=== PATIENT | female | born 1990 | race Caucasian/White ===

== ENCOUNTER → 2019-12-17 | Outpatient (CLI) | payer BC | LOC: COL.RAD 10:29 | DX: Z34.90 Encounter for supervision of normal pregnancy, unspecified, unspecified trimester (principal); Z3A.01 Less than 8 weeks gestation of pregnancy ==

== ENCOUNTER → 2020-08-16 | Outpatient (CLI) | payer BC ==
[~2020-08-16] MED LIST: MOTRIN CHI100 MG/5 M PO
== END ==
LOC: ZCOL.LAB 08:00
DX: Z20.828 Contact with and (suspected) exposure to other viral communicable diseases (principal)

== ENCOUNTER 2020-08-20 07:06 | Inpatient (IN) | payer BC ==
[2020-08-20] VITALS (52 sets, daily range): BP systolic 123–174; BP diastolic 56–102; PULSE 55–109; TEMP 97.6–987.6
[~2020-08-20] VITALS: Ht 167.6 cm; Wt 95.9 kg
--- NOTE | 2020-08-20 07:10 | NUR ---
Pt arrives on unit ambulatory with spouse for IOL. Changed into clean gown. EFM and toco applied. VSS. Denies LOF, vaginal bleeding, regular ctx and reports GFM. IV started in RH. Labs drawn. LR infusing. Admission assessment completed. Consents signed. Pt updated on POC. Bed locked in low position. Call light within reach. No questions or concerns at this time.
[2020-08-20 08:29] LABS: BASO % 0.3 % (0.0-2.0); EOS # 0.1 (0.0-0.7); EOS % 1.1 % (0-4.0); GRAN # 8.3 (1.4-6.5); GRAN % 73.6 % (42.2-75.2); HEMATOCRIT 37.5 % (37.0-47.0); HEMOGLOBIN 12.6 g/dl (12.5-16.0); LYMPH % 17.6 % (20.0-51.0); MEAN CELL VOLUME 82 fl (80.0-100.0); MEAN CORPUSCULAR HEMOGLOBIN 28 pg (27.0-31.0); MEAN CORPUSCULAR HGB CONC 34 g/dl (33.0-37.0); MONO # 0.7 (0.1-0.6); MONO % 6.2 % (1.7-9.3); PLATELET COUNT 146 K/mm3 (130-400); RED BLOOD COUNT 4.55 M/mm3 (4.10-5.30); REDCELL DISTRIBUTION WIDTH-CV 16.9 % (11.5-14.5)
--- NOTE | 2020-08-20 11:08 | NUR ---
Roles at bedside. Reviews FHR strip and BP. Pt repostioned LL. LR bolus infusing. Discusses pain management options with pt. Pt requests stadol. Orders given. See EMAR. COCHRAN per this RN 2-/-2 prior to administration of stadol.
--- NOTE | 2020-08-20 11:33 | NUR ---
RN at bedside. Pt repositioned RL. Difficulty tracing ctx. RN at bedside adjusting TOCO.
--- NOTE | 2020-08-20 14:36 | NUR ---
RN at bedside for negrete placement. FHR noted in the 90s for approximately 3 minutes during negrete placement and SVE. Pt repositioned RL with PB. FHR returns to 125 baseline.
--- NOTE | 2020-08-20 19:12 | NUR ---
191- Pushing started. 1916- FHR decel 70-80bpm while pushing. Recovered to baseline [address] Brandt on the unit. FHR tracing reviewed. 1920- Dr. Brandt at the bedside. 1922- FHR decel 60-80bpm while pushing. 1924- Pt set up for delivery. 1931- of viable male . placed on mom's abdomen. Cords clamped and cut. Care of the given to nursery RN at the bedside. 1935- of placenta. Fundus firm and lochia WNL per Dr. Brandt. Pitocin started at 333ml/hr per order and protocol.
--- NOTE | 2020-08-20 22:30 | NUR ---
Pt up to the bathroom with stand-pivot to wheelchair and 2 RNs for assistance. Pt unable to void at this time. Myrna-care done. Transfered pt to room 214. Oriented to room, bed and call light with in reach. Plan of care reviewed.
[2020-08-21 01:30] VITALS: BP 145/77; PULSE 69; TEMP 97.7
[2020-08-21 05:36] VITALS: BP 134/80; PULSE 75; TEMP 97.9
--- NOTE | 2020-08-21 07:32 | NUR ---
PT CALLED OUT FOR HELP TO BATHROOM. RN PROVIDED ASSITANCE FOR PATIENT TO STAND UP. PT AMBULATED TO BATHROOM INDEPENDENTLY, RN AT SIDE. PT PROVIDED OWN SELINA CARE. PT AMBULATED BACK TO BED INDEPENDENTLY.
[2020-08-21 08:50] VITALS: BP 136/81; PULSE 82; TEMP 98.2
--- NOTE | 2020-08-21 09:13 | NUR ---
Initial visit; Patient thanked [employer] for offering congratulations and God's blessings for the of her son. [employer] thanked patient for choosing [facility].
[2020-08-21 17:20] VITALS: BP 133/82; PULSE 74; TEMP 98.2
[2020-08-22 06:57] VITALS: BP 145/85; PULSE 72; TEMP 98
[2020-08-22] MEDS ORDERED: MOTRIN CHI100 MG/5 M PO (08:59)
[2020-08-22 16:18] VITALS: BP 140/88; PULSE 82; TEMP 98
--- NOTE | 2020-08-22 18:32 | NUR ---
DISCHARGE INSTRUCTIONS GIVEN. MOTHER TO BOARDER STATUS.
== END 2020-08-22 18:15 | disposition home or self-care (01) | DRG 807 ==
LOC: OB 07:06 → LDR 07:06 → OB 11:13
PROVIDERS: ADMIT Obstetrics & Gynecology
PROC: 10E0XZZ Delivery of Products of Conception, External Approach (ICD-10-PCS; principal; 2020-08-20)
PROC: 0KQM0ZZ Repair Perineum Muscle, Open Approach (ICD-10-PCS; 2020-08-20)
PROC: 10907ZC Drainage of Amniotic Fluid, Therapeutic from Products of Conception, Via Natural or Artificial Opening (ICD-10-PCS; 2020-08-20)
DX: O99.824 Streptococcus B carrier state complicating childbirth (principal); Z37.0 Single live birth; O70.1 Second degree perineal laceration during delivery; O99.284 Endocrine, nutritional and metabolic diseases complicating childbirth; E03.9 Hypothyroidism, unspecified; O99.344 Other mental disorders complicating childbirth; F41.9 Anxiety disorder, unspecified; F32.9 Major depressive disorder, single episode, unspecified; Z3A.40 40 weeks gestation of pregnancy
CPT/HCPCS: J0595; J2540; J2590; J2795; J7120